=== PATIENT | female | born 1990 | race Caucasian/White ===

== ENCOUNTER 2017-11-24 06:00 | Inpatient (IN) | payer BC, OTHER ==
[2017-11-24] MEDS ORDERED: OLIVE OIL 118 ML BTL MISC PRN (06:32)
[2017-11-24] MEDS ORDERED: LR 1,000 ML IV PRN (06:32)
[2017-11-24] MEDS ORDERED: MISOPROSTOL 200 MCG TAB PR PRN (06:32)
[2017-11-24] MEDS ORDERED: TERBUTALINE SULFATE 1 MG/ML VIAL IV PRN (06:32)
[2017-11-24] MEDS ORDERED: EPSOM SALT 454 GM TP PRN (06:32)
[2017-11-24] MEDS ORDERED: OXYTOCIN 20 UNIT in LR 1,000 ML IV PRN (06:32)
[2017-11-24] MEDS ORDERED: LR 500 ML IV PRN (07:57)
[2017-11-24] MEDS ORDERED: OXYTOCIN 30 UNIT in NS 500 ML IV SCH (08:00)
[2017-11-24] MEDS ORDERED: AMMONIA AROMATIC 1 EACH AMP IH ONE (08:28)
[2017-11-24] MEDS ORDERED: LIDOCAINE 1% 300 MG/30 ML SDV ONE (08:28)
[2017-11-24] MEDS ORDERED: TERBUTALINE SULFATE 1 MG/ML VIAL ONE (08:28)
[2017-11-24] MEDS ORDERED: OLIVE OIL 118 ML BTL ONE (08:28)
[2017-11-24] MEDS ORDERED: MISOPROSTOL 200 MCG TAB ONE (08:29)
[2017-11-24] MEDS ORDERED: OXYTOCIN 10 UNIT/ML VIAL ONE (08:29)
[2017-11-24 08:45] LABS: PLATELET COUNT 229 10^3/uL (150-400)
--- NOTE | 2017-11-24 11:33 | PDGENHP ---
History and Physical History and Physical: HPI: Patient is a 26 yo G 2 P 1 that presents to L&D for IOL. Reports frequent movement and irregular contractions overnight. Denies LOF, VB or other concerns. KAREN at 23 weeks EGA from [place]. EDC: 11/25/2017 Unsure LMP (thinks sometime mid january): dated by ultrasound at 17 weeks (in [place]). Her is complicated by: - h/o PPD with first - h/o migraines Review of Systems: Constitutional: Denies any fever, chills, or fatigue HEENT: denies any visual changes, difficulty swallowing, hearing loss Cardiovascular: Denies any chest pain, palpitations, leg swelling Respiratory: denies any cough, wheezing, or shortness of breathe GI: Denies any nausea, vomiting, diarrhea, constipation : denies any dysuria, urgency, frequency, vaginal bleeding Musculoskeletal: denies any muscle or bone pain Skin: denies any rashes Neuro: denies any headache, seizures, lightheadedness, dizziness, or loss of consciousness Psychiatric: denies any depression, anxiety, or SI/HI thoughts HISTORY: Previous OB history: previous with epidural - 6#3 oz Past medical history: h/o migraines Past surgical history: appy, left wrist surgery, sinus surgery Medications: PNV, DHA Allergies : NKDA LABS: Rh: A pos ABS: Neg Rubella: Immune HbsAg: NR HIV: NR VDRL: NR 1hr: declined-HGB A1C 4.9 GC: Neg Chlamydia: Neg Pap: Normal GBS: neg BMI: (prepreg) 21 PHYSICAL EXAM: Constitutional: WN, A&Ox3 HEENT: normocephalic atraumatic, supple Heart: RRR, no murmur Chest: CTA-B Abdomen: Soft, nontender, gravid SVE: 2/50/-2 Extremities: neg edema, negative carlton's sign Neuro: grossly normal Psych: normal affect assessment: Reassuring FHTs, baseline 125 +accels, no decels, moderate variability Contractions: toco irregular mild Assessment: 1) 27 yo G 2 P 1 with IUP@ 39.6 (17) 2) IOL 3) GBS neg 4) Cat 1 FHR tracing Plan: 1) Admit to L&D 2) pitocin 3) epidural PRN 4) AROM PRN 5) anticipated
[2017-11-24] MEDS ORDERED: PHENYLEPHRINE HCL 100 MCG/ML SYR IVP PRN (12:12)
[2017-11-24] MEDS ORDERED: fentaNYL 2MCG/ML/BUP 0.1% RTU 100 ML EP SCH (12:30)
[2017-11-24] MEDS ORDERED: LR 500 ML IV SCH (12:30)
[2017-11-24] MEDS ORDERED: LIDOCAINE 2% 100 MG/5 ML SYR ONE (12:47)
[2017-11-24] MEDS ORDERED: fentaNYL 200 MCG, BUPIVACAINE 0.5% 20 ML in NS 100 ML EP SCH (13:00)
--- NOTE | 2017-11-24 13:56 | PREANESOB ---
Obstetric Pre-Anesthesia Info - General Info Proposed Procedure: iván : 2 Para: 1 APOLINAR: 11/25/17 Gestational Age: 39 week(s) and 6 day(s) - Info Status: Full Term - Labor Status Cervical Dilation per last OB SVE: 2 Indications for Labor Analgesia: Augmentation of Labor, Pain Control Labor Epidural: Proposed Anesthesia Allergies/Adverse Reactions: Allergy/AdvReac Type Severity Reaction Status Date / Time No Known Allergies Allergy Unverified 11/24/17 06:29 Visit Medications: Generic Name Dose Route Start Last Admin Trade Name Freq PRN Reason Stop Dose Admin Lactated Ringer's 1,000 mls @ 0 mls/hr 11/24/17 06:32 11/24/17 08:39 Lr IV 11/25/17 06:31 1,000 mls PRN PRN Administration SEE PROTOCOL CONDITIONS Protocol Per Protocol Oxytocin 20 unit/ Lactated 1,002 mls @ 150 mls/hr 11/24/17 06:32 Ringer's IV PRN PRN Post- bleeding Lactated Ringer's 500 mls @ 500 mls/hr 11/24/17 07:57 Lr IV 11/25/17 07:58 PRN PRN Maternal Hypotension Oxytocin 30 unit/ Sodium 503 mls @ 0 mls/hr 11/24/17 08:00 11/24/17 08:37 Chloride IV 05/23/18 07:59 503 mls CONT SERGIO Administration Protocol Per Protocol Lactated Ringer's 500 mls @ 0 mls/hr 11/24/17 12:30 Lr IV 05/23/18 12:29 CONT SERGIO As Directed Fentanyl 200 mcg/ Bupivacaine 100 mls @ 0 mls/hr 11/24/17 13:00 HCl 20 ml/ Sodium Chloride EP 12/04/17 12:59 CONT SERGIO Protocol As Directed Ibuprofen 600 mg 11/24/17 06:32 Motrin PO 05/23/18 06:31 Q6HRS PRN post , inflammation Magnesium Sulfate 454 gm 11/24/17 06:32 Epsom Salt TP 05/23/18 06:31 Q1H PRN perineal discomfort Misoprostol 800 - 1,000 mcg 11/24/17 06:32 Cytotec WA ONCE PRN Vaginal Atony/Bleeding [place] Oil 118 ml 11/24/17 06:32 Sweet Oil MISC 05/23/18 06:31 ONCE PRN perineal massage Phenylephrine HCl 100 mcg 11/24/17 12:12 Neosynephrine IVP 05/23/18 12:11 .Q2M PRN Hypotension Terbutaline Sulfate 0.25 mg 11/24/17 06:32 Brethine IV 05/23/18 06:31 ONCE PRN Tachysystole Discontinued Medications Generic Name Dose Route Start Last Admin Trade Name Frejessica PRN Reason Stop Dose Admin Ammonia (Aromatic Spirit) Confirm 11/24/17 08:28 Ammonia Aromatic Administered 11/24/17 08:29 Dose 1 each IH .STK-MED ONE Lidocaine HCl Confirm 11/24/17 08:28 Lidocaine Hcl 1% Administered 11/24/17 08:29 Dose 300 mg .ROUTE .STK-MED ONE Lidocaine HCl Confirm 11/24/17 12:47 Lidocaine Hcl 2% Administered 11/24/17 12:48 Dose 100 mg .ROUTE .STK-MED ONE Misoprostol Confirm 11/24/17 08:29 Cytotec Administered 11/24/17 08:30 Dose 1,000 mcg .ROUTE .STK-MED ONE Blackfoot Oil Confirm 11/24/17 08:28 Sweet Oil Administered 11/24/17 08:29 Dose 118 ml .ROUTE .STK-MED ONE Oxytocin Confirm 11/24/17 08:29 Pitocin Administered 11/24/17 08:30 Dose 40 unit .ROUTE .STK-MED ONE Terbutaline Sulfate Confirm 11/24/17 08:28 Brethine Administered 11/24/17 08:29 Dose 1 mg .ROUTE .STK-MED ONE - Vital Signs Height/Weight (Nursing): Height 158 cm Weight 62.596 kg Labs: 11/24/17 08:35 Patient ABO/Rh A POSITIVE 11/24/17 08:35
--- NOTE | 2017-11-24 14:57 | PDMN ---
Medical Necessity Medical necessity: Patient meets inpatient criteria per CNM note and anticipated MCG [id number] Vaginal Delivery.
[2017-11-24] MEDS ORDERED: DOCUSATE SODIUM 100 MG CAP PO PRN (16:13)
[2017-11-24] MEDS ORDERED: HYDROCODONE/APAP 5/325 TAB PO PRN (16:13)
[2017-11-24] MEDS ORDERED: HYDROCORTISONE 0.5% CREAM TP PRN (16:13)
[2017-11-24] MEDS ORDERED: ACETAMINOPHEN 325 MG TAB PO PRN (16:13)
[2017-11-24] MEDS ORDERED: SIMETHICONE 80 MG TAB CHEW PO PRN (16:13)
--- NOTE | 2017-11-24 16:19 | OBDEL ---
Info Type: Vaginal Presentation at Delivery: Vertex L&D Analgesia/Anesthesia Type: Epidural GBS+: No Intrapartum Medications: Generic Name Dose Route Start Last Admin Trade Name Freq PRN Reason Stop Dose Admin Lactated Ringer's 1,000 mls @ 0 mls/hr 11/24/17 06:32 11/24/17 08:39 Lr IV 11/25/17 06:31 1,000 mls PRN PRN Administration SEE PROTOCOL CONDITIONS Protocol Per Protocol Oxytocin 30 unit/ Sodium 503 mls @ 0 mls/hr 11/24/17 08:00 11/24/17 08:37 Chloride IV 05/23/18 07:59 503 mls CONT SERGIO Administration Protocol Per Protocol Indications for Delivery: Elective Vaginal Delivery - Delivery Provider Delivery Physician/CNM: Lynnette Charles Proctoring Provider: Lluvia Person - Labor and Delivery Onset of Contractions Date: 11/24/17 Onset of Contractions Time: 13:00 Onset of Contractions Type: Induced Rupture of Membranes Date: 11/24/17 Rupture of Membranes Time: 14:02 Rupture of Membranes Type: Artificial Amniotic Fluid Color: Clear Dilation Complete Date: 11/24/17 Dilation Complete Time: 15:42 Placenta Delivery Date: 11/24/17 Placenta Delivery Time: 16:07 Total Hours of Labor: 3 Non-surgical Procedures: Amniotomy Laceration: 2nd Degree Vaginal Sponge Count Correct: Yes Vaginal Needle Count Correct: Yes Vaginal Sweep Performed: No EBL: 200 Delivery Events: Nuchal Cord (loose x 1) - Medications Labor Augmentation/Induction Methods Used: Pitocin Labor Augmentation/Induction Indication: Elective [place] Data APOLINAR: 11/25/17 Gestational Age: 39 week(s) and 6 day(s) [place] Delivery Date: 11/24/17 Delivery Time: 15:58 Sex of : Female Score (1 Min): 8 Score (5 Min): 9 ICD10 Worksheet Patient Problems: Problems Problem Status Onset (spontaneous vaginal delivery) Acute - ICD10 Problem Qualifiers (1) (spontaneous vaginal delivery)
[2017-11-24] MEDS: IBUPROFEN 600 MG TAB PO PRN ×2 (16:32→22:33)
[2017-11-25] MEDS: IBUPROFEN 600 MG TAB PO PRN ×2 (04:33→11:00)
--- NOTE | 2017-11-25 08:56 | OBPP ---
Progress Note Assessment/Plan: Assessment: PPD 1 s/p non- BF GBS - mild anemia Plan: Pt desires d/c later today 11/25/17 08:53 Subjective/ Course: 11/25/17 08:54 Pt doing well. bld is light. moderate cramps - doing ok with ibuprofen. is not BF and has on a tight bra. used med in [place] after first to dry up milk. got some sleep last noc. desires d/c later today. Objective: 11/24/17 08:35 Patient ABO/Rh A POSITIVE 11/24/17 08:35 Temp Pulse Resp BP Pulse Ox 36.6 C 86 18 96/65 L 97 11/24/17 22:30 11/24/17 22:30 11/24/17 22:30 11/24/17 22:30 11/24/17 22:30 Uterine Position/Fundal Height: Umbilicus -1 Uterine Tone: Firm Physical Exam - Physical Exam Abdomen: non-tender, soft, other (FF at umb -1) Extremities: non-tender, pedal edema (minimal) Skin: normal color, warm/dry Neuro/Psych: alert, normal mood/affect
[2017-11-25] MEDS ORDERED: IRON POLYSAC/IRON HEME 28 MG TAB PO SCH (09:00)
--- NOTE | 2017-11-25 09:01 | OBGCSDC ---
General Delivery Information - General Info : 2 Para: 2 Abortions: 0 Type: Vaginal L&D Analgesia/Anesthesia Type: Epidural Admission Date: 11/24/17 Labs: Patient ABO/Rh A POSITIVE 11/24/17 08:35 Hct 34.3 % (38.0-47.0) L 11/24/17 08:35 - Hospital Course : 11/25/17 08:54 Pt doing well. bld is light. moderate cramps - doing ok with ibuprofen. is not BF and has on a tight bra. used med in [place] after first to dry up milk. got some sleep last noc. desires d/c later today. Vaginal - Delivery Provider Delivery Physician/CNM: Lynnette Charles - Diagnosis Labor: Induced Rupture of Membranes Type: Artificial Amniotic Fluid Color: Clear Laceration: 2nd Degree Delivery Events: Nuchal Cord (loose x 1) - Procedures Non-surgical Procedures: Amniotomy - Delivery Non-surgical Procedures: Amniotomy EBL: 200 [place] Data APOLINAR: 11/25/17 Gestational Age: 40 week(s) and 0 day(s) Johnson Delivery Date: 11/24/17 Delivery Time: 17:58 Sex of : Female [place] Weight (gm): 3244 kg Score (1 Min): 8 Score (5 Min): 9 Discharge Information - Discharge Information Condition: Good Instruction/Follow Up: See Instruction Sheet, Four Weeks (with therapist), Six Weeks (with CNM)
[2017-11-25 10:54] VITALS: BP 106/69; PULSE 76; RESP 16; TEMP 97; O2SAT 98
--- NOTE | 2017-11-26 07:15 | POSTANESTH ---
Post Anesthetic Evaluation Cardiovascular Status: Similar to Pre-Op Cond Respiratory Status: Similar to Pre-op Cond. Level of Consciousness/Mental Status: Alert and Oriented Pain Control: Adequate, Prn Tx Ordered Nausea/Vomiting Control: Adequate, Prn Tx Ordered Complications Possibly Related to Anesthesia: None Noted
== END 2017-11-25 16:45 | disposition home or self-care (01) | DRG 775 ==
LOC: FLD 06:16 → FOB 20:35
PROVIDERS: ADMIT Obstetrics & Gynecology; ATTEND Obstetrics & Gynecology
PROC: 10907ZC Drainage of Amniotic Fluid, Therapeutic from Products of Conception, Via Natural or Artificial Opening (ICD-10-PCS; principal; 2017-11-24)
PROC: 10E0XZZ Delivery of Products of Conception, External Approach (ICD-10-PCS; principal; 2017-11-24)
PROC: 0KQM0ZZ Repair Perineum Muscle, Open Approach (ICD-10-PCS; principal; 2017-11-24)
PROC: 3E033VJ Introduction of Other Hormone into Peripheral Vein, Percutaneous Approach (ICD-10-PCS; principal; 2017-11-24)
DX: O69.82X0 Labor and delivery complicated by other cord entanglement, without compression, not applicable or unspecified (principal); Z37.0 Single live birth; O70.1 Second degree perineal laceration during delivery; Z3A.39 39 weeks gestation of pregnancy
CPT/HCPCS: J2001; J2370; J2590; J3010; J3105

== ENCOUNTER 2019-01-03 06:00 | Inpatient (IN) | payer BC ==
[2019-01-03] MEDS ORDERED: MISOPROSTOL 200 MCG TAB PR PRN (07:13)
[2019-01-03] MEDS ORDERED: OXYTOCIN/RINGERS LACTATE 500 ML IV SCH (07:13)
[2019-01-03] MEDS ORDERED: LR 500 ML IV PRN (07:13)
[2019-01-03] MEDS ORDERED: LIDOCAINE 1% 300 MG/30 ML SDV SC PRN (07:13)
[2019-01-03] MEDS ORDERED: IBUPROFEN 600 MG TAB PO PRN (07:13)
[2019-01-03] MEDS ORDERED: OLIVE OIL 118 ML BTL MISC PRN (07:13)
[2019-01-03] MEDS ORDERED: OXYTOCIN/RINGERS LACTATE 1,000 ML IV PRN (07:13)
[2019-01-03] MEDS ORDERED: EPSOM SALT 454 GM TP PRN (07:13)
[2019-01-03] MEDS ORDERED: LIDOCAINE 1% 300 MG/30 ML SDV ONE (07:18)
[2019-01-03] MEDS ORDERED: OLIVE OIL 118 ML BTL MISC ONE (07:19)
[2019-01-03] MEDS ORDERED: TERBUTALINE SULFATE 1 MG/ML VIAL ONE (07:19)
[2019-01-03] MEDS ORDERED: AMMONIA AROMATIC 1 EACH AMP IH ONE (07:19)
[2019-01-03] MEDS ORDERED: OXYTOCIN 10 UNIT/ML VIAL ONE (07:19)
[2019-01-03 07:28] LABS: PLATELET COUNT 218 10^3/uL (150-400)
[2019-01-03] MEDS: LR 1,000 ML IV PRN ×2 (07:30→12:32)
--- NOTE | 2019-01-03 10:04 | GHP ---
[f rep st] PREOP HISTORY AND PHYSICAL DATE OF ADMISSION: 01/03/2019 ADMITTING DIAGNOSIS: Intrauterine at 39-0/7 weeks' gestation for elective induction of labor. HISTORY OF PRESENT ILLNESS: The patient is a 30-year-old, 3, para 2-0-0 -2 with a last menstrual period of 04/05/2018 and EDC of 01/10/2019 which was confirmed by an 8-week ultrasound. She has had good care at [facility] since registration at 8 weeks gestation. Her risk factors include short interval, nonimmune to varicella, a history of pyelo with G1 and a small cyst seen in the right kidney on anatomy ultrasound that resolved. No other significant risk factors. She has had normal labs and other ultrasounds in this and she has progressed to 39 weeks. The patient has had an elective induction of labor with her last 2 pregnancies and she wishes to have an induction of labor at 39 weeks for this baby. REVIEW OF SYSTEMS: She has had no complaints and has a negative review of systems. The patient declined cervical ripening agents prior to admission. PAST OBSTETRICAL HISTORY: In June of 2012 she had a viable male 6 pounds 3 ounces vaginal delivery delivered in [place], no complications. In November 2017 she had a viable female, vaginal delivery elective induction at 39 weeks and this is her 3rd . GYNECOLOGICAL HISTORY: She had menarche at age 10. Periods every month, length 5 to 7 days. Sure her regular last menstrual period of April 05, 2018. No significant gynecological issues. Had used a Mirena IUD for contraception. PAST MEDICAL HISTORY: None significant. PAST SURGERY HISTORY: She had a sinus surgery and appendectomy and a left wrist surgery and she has had some pre cancerous skin lesions removed. ALLERGIES: No known drug allergies her only. MEDICATIONS: Include vitamins and DHA. She has not been anemic. SOCIAL HISTORY: She is . She lives with her , and her 2 children. She denies tobacco, alcohol, and drug use. She is from [place], [facility]. She is a [id number] mom. He is an senior engineering team leader. FAMILY HISTORY: Father, paternal grandmother, and mother have hypertension. Mother has GERD. Paternal grandfather had alcoholism. Paternal grandfather Parkinson's. RISK FACTORS: Include advanced paternal age. is age 57. LAB: She is A positive, antibody negative, RPR nonreactive, rubella immune, hepatitis negative, HIV negative. Standard panel negative. Urine drug screen was negative. Urine culture is negative. 1-hour GTT normal. GBS is negative. OBJECTIVE: VITAL SIGNS: Today afebrile. Vital signs are stable. GENERAL: Well-developed, well-nourished, white female, in no acute distress. LUNGS: Clear to auscultation bilaterally. HEART: Regular rate and rhythm no murmur. ABDOMEN: Gravid, nontender, nondistended. heart tones are 140s, reactive , moderate variability category 1. She is luc irregularly. Cervix was 3, 80% -2, and baby is cephalic. She is intact. ASSESSMENT/PLAN: 30 y/o 3, para 2-0-0-2 at 39 weeks exactly for elective induction of labor. The patient is on Pitocin. We will want an epidural for pain control. After epidural we will perform artificial rupture of membranes. /[id number]/MODL MTDD
[2019-01-03] MEDS ORDERED: PHENYLEPHRINE HCL 100 MCG/ML SYR ONE (11:12)
[2019-01-03] MEDS ORDERED: BUPIVACAINE 0.25% 10 ML SDV ONE (11:12)
[2019-01-03] MEDS ORDERED: fentaNYL 2MCG/ML/BUP 0.1% RTU 100 ML BAG EP ONE (11:12)
[2019-01-03] MEDS ORDERED: fentaNYL 100 MCG/2 ML INJ ONE (11:12)
--- NOTE | 2019-01-03 11:49 | PDANEPAE ---
ANE History of Present Illness Labor, induction term without complications of ANE Past Medical History - Cardiovascular History Hx Hypertension: No Hx Arrhythmias: No - Pulmonary History Hx COPD: No Hx Asthma/Reactive Airway Disease: No Hx Sleep Apnea: No ANE Review of Systems Review of systems is: negative Review of Systems: ANE Patient History - Allergies Allergies/Adverse Reactions: No Known Allergies Allergy (Unverified 11/24/17 06:29) - Home Medications Home medications: home medication list seen and reviewed Home Medications: 1 tab PO DAILY 01/03/19 [Last Taken Unknown] - Anes Hx Anes Hx: no prior problems (Prior epidural without diff) - Smoking Hx Smoking Status: Never smoked ANE Labs/Vital Signs - Labs Result Diagrams: 01/03/19 06:50 - Vital Signs Height: 157.48 cm Weight: 63.503 kg ANE Physical Exam - Airway Neck exam: FROM Mallampati Score: Class 2 - Pulmonary Pulmonary: no respiratory distress - Cardiovascular Cardiovascular: regular rate and rhythym - ASA Status ASA Status: II ANE Anesthesia Plan Anesthesia Plan: epidural (PCEA)
[2019-01-03] MEDS ORDERED: LR 500 ML IV SCH (12:00)
[2019-01-03] MEDS ORDERED: fentaNYL 2MCG/ML/BUP 0.1% RTU 100 ML EP SCH (12:00)
[2019-01-03] MEDS ORDERED: BUPIVACAINE 0.5% 30 ML SDV ONE (12:09)
[2019-01-03] MEDS ORDERED: HYDROCORTISONE 0.5% CREAM TP PRN (13:33)
[2019-01-03] MEDS ORDERED: oxyCODONE IR 5 MG TAB PO PRN (13:33)
[2019-01-03] MEDS ORDERED: SIMETHICONE 80 MG TAB CHEW PO PRN (13:33)
--- NOTE | 2019-01-03 13:36 | OBDEL ---
Info Type: Vaginal Presentation at Delivery: Vertex L&D Analgesia/Anesthesia Type: Epidural GBS+: No Intrapartum Medications: Generic Name Dose Route Start Last Admin Trade Name Freq PRN Reason Stop Dose Admin Oxytocin/Lactated Ringer's 500 mls @ 0 mls/hr 01/03/19 07:13 01/03/19 07:30 Pitocin 30 Units/Lr (Premix) IV 07/02/19 07:12 500 mls CONT SERGIO Administration Protocol Per Protocol Lactated Ringer's 1,000 mls @ 0 mls/hr 01/03/19 07:13 01/03/19 12:32 Lr IV 01/04/19 07:12 1,000 mls PRN PRN Administration SEE PROTOCOL CONDITIONS Protocol Per Protocol Indications for Delivery: Elective Vaginal Delivery - Delivery Provider Delivery Physician/CNM: Lluvia Person - Labor and Delivery Onset of Contractions Date: 01/03/19 Onset of Contractions Time: 07:30 Onset of Contractions Type: Induced Rupture of Membranes Date: 01/03/19 Rupture of Membranes Time: 13:10 Rupture of Membranes Type: Artificial Amniotic Fluid Color: Clear Dilation Complete Date: 01/03/19 Dilation Complete Time: 13:11 Placenta Delivery Date: 01/03/19 Placenta Delivery Time: 13:23 Total Hours of Labor: 5 Non-surgical Procedures: Amniotomy Laceration: 1st Degree Repair: 3-0, Vicryl Vaginal Sponge Count Correct: Yes Vaginal Needle Count Correct: Yes Vaginal Sweep Performed: Yes EBL: 250 Delivery Events: None - Medications Labor Augmentation/Induction Methods Used: Pitocin Labor Augmentation/Induction Indication: Elective [place] Data APOLINAR: 01/10/19 Gestational Age: 39 week(s) and 0 day(s) Johnson Delivery Date: 01/03/19 Delivery Time: 13:17 Sex of Infant: Male Score (1 Min): 9 Score (5 Min): 10 ICD10 Worksheet Patient Problems: Problems Problem Status Onset (spontaneous vaginal delivery) Acute
[2019-01-03] MEDS: ACETAMINOPHEN 325 MG TAB PO PRN ×2 (15:33→21:03)
[2019-01-03] MEDS: IBUPROFEN 600 MG TAB PO PRN (21:03)
[2019-01-03] MEDS: DOCUSATE SODIUM 100 MG CAP PO PRN (21:03)
[2019-01-04] MEDS: ACETAMINOPHEN 325 MG TAB PO PRN ×2 (03:05→08:53)
[2019-01-04] MEDS: IBUPROFEN 600 MG TAB PO PRN ×2 (03:05→08:52)
[2019-01-04] MEDS: DOCUSATE SODIUM 100 MG CAP PO PRN (08:52)
[2019-01-04 09:26] VITALS: BP 100/69
--- NOTE | 2019-01-04 10:17 | OBGCSDC ---
General Delivery Information - General Info : 3 Para: 3 Abortions: 0 Type: Vaginal L&D Analgesia/Anesthesia Type: Epidural Admission Date: 01/03/19 Labs: Patient ABO/Rh A POSITIVE 01/03/19 06:50 Hct 39.2 % (38.0-47.0) 01/03/19 06:50 - Hospital Course : 01/04/19 10:15 Pt seen and examined. Doing well with no complaints. Some mild cramping noted. Mod lochia. She is OOB, edith regular diet, voiding and passing flatus. No BM yet. She is bottle feeding and wants to go home later today. Vaginal - Delivery Provider Delivery Physician/CNM: Lluvia Person - Diagnosis Labor: Induced Rupture of Membranes Type: Artificial Amniotic Fluid Color: Clear Laceration: 1st Degree Repair: 3-0, Vicryl Delivery Events: None - Procedures Non-surgical Procedures: Amniotomy - Delivery Non-surgical Procedures: Amniotomy EBL: 250 [place] Data APOLINAR: 01/10/19 Gestational Age: 39 week(s) and 1 day(s) Johnson Delivery Date: 01/03/19 Delivery Time: 13:17 Sex of Infant: Male Weight (gm): 3500 kg Score (1 Min): 9 Score (5 Min): 10 Discharge Information - Discharge Information Condition: Good Instruction/Follow Up: Four Weeks (3 weeks for a mood check), Six Weeks (for a routine pp check)
--- NOTE | 2019-01-04 10:17 | OBPP ---
Progress Note Assessment/Plan: Assessment: 28 y/o G3 now P3 s/p @ 39 weeks-elective IOL PPD #1 - pt is stable A+, GBS neg, RI Plan: Continue routine pp care Plan for d/c home later today if baby is discharged Instructions reviewed with pt No Rx given. Cont Motrin and colace as needed. Discussed tight bra and ways to help prevent milk from coming in Pelvic rest RTC in 3 weeks for a mood check and 6 weeks for a pp visit 01/04/19 10:13 Subjective/ Course: 01/04/19 10:15 Pt seen and examined. Doing well with no complaints. Some mild cramping noted. Mod lochia. She is OOB, edith regular diet, voiding and passing flatus. No BM yet. She is bottle feeding and wants to go home later today. Objective: 01/03/19 06:50 Patient ABO/Rh A POSITIVE 01/03/19 06:50 Temp Pulse Resp BP Pulse Ox 36.3 C 68 14 100/69 97 01/04/19 08:00 01/04/19 08:00 01/04/19 08:00 01/04/19 08:00 01/04/19 08:00 Uterine Position/Fundal Height: Umbilicus -2 Uterine Tone: Firm Physical Exam - Physical Exam General Appearance: WD/WN, alert, no apparent distress Respiratory: lungs clear, normal breath sounds Cardiac/Chest: regular rate, rhythm Abdomen: normal bowel sounds, non-tender, soft, flatus (+) Extremities: non-tender, normal inspection Skin: normal color, warm/dry Neuro/Psych: alert, normal mood/affect, oriented x 3
== END 2019-01-04 15:15 | disposition home or self-care (01) | DRG 807 ==
LOC: FLD 06:35 → FOB 15:00
PROVIDERS: ADMIT Obstetrics & Gynecology; ATTEND Obstetrics & Gynecology
PROC: 10E0XZZ Delivery of Products of Conception, External Approach (ICD-10-PCS; principal; 2019-01-03)
PROC: 0WQNXZZ Repair Female Perineum, External Approach (ICD-10-PCS; principal; 2019-01-03)
PROC: 3E033VJ Introduction of Other Hormone into Peripheral Vein, Percutaneous Approach (ICD-10-PCS; 2019-01-03)
PROC: 10907ZC Drainage of Amniotic Fluid, Therapeutic from Products of Conception, Via Natural or Artificial Opening (ICD-10-PCS; 2019-01-03)
DX: O70.0 First degree perineal laceration during delivery (principal); Z3A.39 39 weeks gestation of pregnancy; Z37.0 Single live birth
CPT/HCPCS: J2370; J2590; J3010; J3105